=== PATIENT | female | born 1990 | race American Indian/Alaskan Native ===

== ENCOUNTER 2016-09-29 15:15 | Emergency (ER) | payer MEDICAID ==
[2016-09-29 16:31] LABS: Urine Drugs of Abuse Note Disclamer
[2016-09-29 16:51] LABS: Bacteria,Urine 3+ /HPF (Negative); Bilirubin,Urine NEG (Negative); Blood,Urine MOD (Negative); Ketones,Urine NEG (Negative); Leukocyte Esterase,Urine LG (Negative); Mucus,Urine 2+ /HPF; Nitrite,Urine POS (Negative); Protein,Urine <15 mg/dL mg/dL (Negative); Urobilinogen,Urine < 2.0 mg/dL (<2.0)
[2016-09-29 17:04] LABS: Basophils % (Auto) 1.3 % (0.0-1.8); Eosinophils % (Auto) 1.2 % (0.0-4.3); Hematocrit 35.3 % (30.3-42.9); Hemoglobin 11.2 gm/dl (10.1-14.3); Mean Corpuscular HGB Conc 32 % (30-34); Mean Corpuscular Volume 73 fl (79-97); Platelet Count 359 K/mm3 (140-440); Red Blood Count 4.82 M/mm3 (3.65-5.03); Red Cell Distribution Width 16.3 % (13.2-15.2); White Blood Count 7.2 K/mm3 (4.5-11.0)
[2016-09-29 17:06] LABS: Mean Corpuscular Hemoglobin 23 pg (28-32)
[2016-09-29 17:20] LABS: BUN/Creatinine Ratio 12.85; Blood Urea Nitrogen 9 mg/dL (7-17); Calcium 8.3 mg/dL (8.4-10.2); Carbon Dioxide 20 mmol/L (22-30); Chloride 102.9 mmol/L (98-107); Glucose 85 mg/dL (65-100); Sodium 137 mmol/L (137-145)
[2016-09-29 17:28] LABS: Anion Gap 19 mmol/L; Potassium 4.4 mmol/L (3.6-5.0)
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
[2016-09-29] MEDS ORDERED: MACROBID PO STA (18:03)
[2016-09-29 20:29] VITALS: BP 105/57
== END 2016-09-29 23:55 ==
LOC: ED 15:15
DX: T43.212A Poisoning by selective serotonin and norepinephrine reuptake inhibitors, intentional self-harm, initial encounter (principal); F32.9 Major depressive disorder, single episode, unspecified; N39.0 Urinary tract infection, site not specified; J45.909 Unspecified asthma, uncomplicated; F17.200 Nicotine dependence, unspecified, uncomplicated; Y92.9 Unspecified place or not applicable
CPT/HCPCS: 36415; 80048; 80307; 81001; 81025; 85025; 93005; 93010; 99285; G0480; 80320

== ENCOUNTER 2021-11-30 13:17 | Emergency (ER) | payer SELFPAY ==
[2021-11-30 13:34] VITALS: BP 115/87
--- NOTE | 2021-11-30 14:18 | Emergency Department Report ---
ED Female HPI - General Chief complaint: Urogenital-Female Stated complaint: ABD PAIN, BACK PAIN Source: patient, EMS Mode of arrival: Ambulatory Limitations: No Limitations - History of Present Illness Initial comments: 31-year-old female presents to the ED complaining vaginal irritation after having unprotected sex. Patient states that she had unprotected sex 5 days ago with someone she knew from high school. Patient states since having unprotected sex she has been using soap , vaginal cream and other [id number] medication for itching and discomfort. Patient states that now she is having some dysuria with lower pelvic pain. Patient is alert and oriented x3. No acute distress noted. No ill appearance noted. MD Complaint: dysuria, possible STD Severity scale (0 -10): 8 Improves with: none Worsens with: urination Are you Now?: No - Related Data Home Medications Medication Instructions Recorded Confirmed Last Taken Vits96/Iron Fum/Folic 1 tab PO DAILY 04/01/14 05/02/14 04/29/14 [ Tablet] 1 tab Previous Rx's Medication Instructions Recorded Last Taken Type Amoxicillin [Trimox CAP] 500 mg PO Q8H #30 capsule 03/18/15 Unknown Rx traMADoL [Ultram 50 MG tab] 50 mg PO Q6HR PRN #15 tablet 03/18/15 Unknown Rx Fluconazole (Nf) [Diflucan TAB] 150 mg PO ONCE 2 Days #2 tablet 11/30/21 Unknown Rx metroNIDAZOLE [Flagyl] 500 mg PO Q12HR 10 Days #20 tab 11/30/21 Unknown Rx Allergies Allergy/AdvReac Type Severity Reaction Status Date / Time No Known Allergies Allergy Verified 11/30/21 13:34 ED Review of Systems ROS: Stated complaint: ABD PAIN, BACK PAIN Other details as noted in HPI Constitutional: denies: chills, fever Eyes: denies: eye pain, eye discharge, vision change ENT: denies: ear pain, throat pain Respiratory: denies: cough, shortness of breath, wheezing Cardiovascular: denies: chest pain, palpitations Endocrine: no symptoms reported Gastrointestinal: denies: abdominal pain, nausea, diarrhea Genitourinary: discharge. denies: urgency, dysuria Musculoskeletal: denies: back pain, joint swelling, arthralgia Skin: denies: rash, lesions Neurological: denies: headache, weakness, paresthesias Psychiatric: denies: anxiety, depression Hematological/Lymphatic: denies: easy bleeding, easy bruising ED Past Medical Hx - Past Medical History Hx Hypertension: No Hx Congestive Heart Failure: No Hx Diabetes: No Hx Deep Vein Thrombosis: No Hx Renal Disease: No Hx Sickle Cell Disease: No Hx Seizures: No Hx Asthma: Yes (CHILDHOOD) Hx COPD: No Hx HIV: No Additional medical history: Depression - Social History Smoking Status: Current Every Day Smoker - Medications Home Medications: Home Medications Medication Instructions Recorded Confirmed Last Taken Type Vits96/Iron Fum/Folic 1 tab PO DAILY 04/01/14 05/02/14 04/29/14 History [ Tablet] 1 tab Amoxicillin [Trimox CAP] 500 mg PO Q8H #30 capsule 03/18/15 Unknown Rx traMADoL [Ultram 50 MG tab] 50 mg PO Q6HR PRN #15 tablet 03/18/15 Unknown Rx Fluconazole (Nf) [Diflucan TAB] 150 mg PO ONCE 2 Days #2 tablet 11/30/21 Unknown Rx metroNIDAZOLE [Flagyl] 500 mg PO Q12HR 10 Days #20 tab 11/30/21 Unknown Rx ED Physical Exam - General Limitations: No Limitations General appearance: alert, in no apparent distress - Head Head exam: Present: atraumatic, normocephalic - Eye Eye exam: Present: normal appearance - ENT ENT exam: Present: mucous membranes moist - Neck Neck exam: Present: normal inspection - Respiratory Respiratory exam: Present: normal lung sounds bilaterally. Absent: respiratory distress - Cardiovascular Cardiovascular Exam: Present: regular rate, normal rhythm. Absent: systolic murmur, diastolic murmur, rubs, gallop - GI/Abdominal GI/Abdominal exam: Present: soft, normal bowel sounds - External exam: Present: erythema Speculum exam: Present: cervical discharge Bi-manual exam: Present: normal bi-manual exam - Extremities Exam Extremities exam: Present: normal inspection - Back Exam Back exam: Present: normal inspection - Neurological Exam Neurological exam: Present: alert, oriented X3 - Psychiatric Psychiatric exam: Present: normal affect, normal mood - Skin Skin exam: Present: warm, dry, intact, normal color. Absent: rash ED Course Vital Signs 11/30/21 13:17 Temperature 97.8 F Pulse Rate 78 Respiratory 16 Rate Blood Pressure 115/87 [Left] O2 Sat by Pulse 99 Oximetry ED Medical Decision Making - Medical Decision Making 31-year-old female presents to the ED complaining vaginal irritation after having unprotected sex. Patient states that she had unprotected sex 5 days ago with someone she knew from high school. Patient states since having unprotected sex she has been using soap , vaginal cream and other [id number] medication for itching and discomfort. Patient states that now she is having some dysuria with lower pelvic pain. Patient is alert and oriented x3. No acute distress noted. No ill appearance noted. Wet prep is significant for bacterial vaginosis and yeast,. Will empirically treat patient for STD Rechecked the patient is resting quietly , comfortable and feeling better. I discussed the results of diagnostic study, my clinical impression and the plan for further treatment with the patient. Patient agrees with plan and discharge at this present time. All question addressed. I have given the patient instruction regarding a diagnosis ,expectation ,follow- up and return precaution. I explained to the patient that emergent condition may arise and to return to the ED for new worsen and any new persisting condition. I have explained the importance of following up with the primary care physician or referral physician listed below has instructed. The patient verbalized understanding of discharge instruction. Critical care attestation.: If time is entered above; I have spent that time in minutes in the direct care of this critically ill patient, excluding procedure time. ED Disposition Clinical Impression: Bacterial vaginosis, Vaginal yeast infection Disposition: 01 HOME / SELF CARE / HOMELESS Is pt being admited?: No Does the pt Need Aspirin: No Condition: Stable Instructions: Bacterial Vaginosis (ED), Bacterial Vaginosis, [id number], Vaginal Yeast Infection, Adult Additional Instructions: Take medication as prescribed return to ED for any worsening symptom Prescriptions: Fluconazole (Nf) [Diflucan TAB] 150 mg PO ONCE 2 Days #2 tablet metroNIDAZOLE [Flagyl] 500 mg PO Q12HR 10 Days #20 tab Referrals: [facility] [Provider Group] - 3-5 Days Forms: STI Treatment and Prevention Time of Disposition: 15:18
[2021-11-30 14:52] LABS: Mucus,Urine FEW /HPF
[2021-11-30 14:57] LABS: HCG Qualitative,Urine Negative (Negative)
[2021-11-30] MEDS ORDERED: AZITHROMYCIN 250 MG TAB PO ONE (15:12)
[2021-11-30] MEDS ORDERED: LIDOCAINE-MPF (1%) 10 MG/1 ML VIAL 5 ML INFILTRATI ONE (15:12)
[2021-11-30 15:17] LABS: Color,Urine Straw (Yellow)
== END 2021-11-30 17:11 | disposition home or self-care (01) ==
LOC: ED 13:17
DX: N76.0 Acute vaginitis (principal); B37.9 Candidiasis, unspecified; B96.89 Other specified bacterial agents as the cause of diseases classified elsewhere; J45.909 Unspecified asthma, uncomplicated; F17.200 Nicotine dependence, unspecified, uncomplicated
CPT/HCPCS: 81001; 81025; 87210; 87591; 96372; 99284; J0696; J3490